=== PATIENT | female | born 1940 | race Hispanic/Latino ===

== ENCOUNTER 2017-11-29 13:19 | Emergency (ER) | payer MEDICARE ==
[~2017-11-29 13:19] MED LIST: ALPR0.5T8 PO; BUDE10.22 IH; CARV12.511 PO; CHOL200012 PO; CIPR500S5 PO; DULO20CA17 PO; FERR-82 PO; HYDR-4068 PO; MEMA5TAB PO; METF500T6 PO; NITR0.4T SL; OMEP40CA37 PO; OXYB5TAB10 PO; PRED20TA3 PO; SIMV5TAB6 PO
[2017-11-29 14:01] LABS: EOSINOPHILS % (AUTO) 1.9 % (0.0-8.0); LYMPHOCYTES % (AUTO) 20.1 % (21.0-51.0); MEAN CORPUSCULAR HGB CONC 34.3 g/dL (32.0-36.0); MEAN CORPUSCULAR VOLUME 99.1 fL (79-99); MONOCYTES % (AUTO) 7.1 % (3.0-13.0); NEUTROPHILS % (AUTO) 69.9 % (40.0-77.0); PLATELET COUNT (AUTO) 70 K/uL (130-400); RED BLOOD CELL COUNT(AUTO) 3.33 MIL/uL (4.00-5.50); RED CELL DISTRIBUTION WIDTH 12.9 % (11.0-15.5); WHITE BLOOD COUNT (AUTO) 4.8 K/uL (4.8-10.8)
[2017-11-29 14:16] LABS: CREATININE 0.9 mg/dL (0.5-1.5); POTASSIUM 3.9 mmol/L (3.5-5.1)
[2017-11-29 14:39] LABS: BILIRUBIN,TOTAL 0.4 mg/dL (0.2-1.0); CREATINE KINASE MB 0.6 ng/mL (0.5-3.6); TOTAL PROTEIN, SERUM 6.4 g/dL (6.0-8.3)
[2017-11-29] MEDS ORDERED: LIDOCAINE HCL 2% VISCOUS 15 ML UDCUP ONE (16:34)
[2017-11-29] MEDS ORDERED: MAG HYDROX/AL HYDROX/SIMETH ES 30 ML SUSP UDCUP ONE (16:34)
[2017-11-29] MEDS ORDERED: ONDANSETRON HCL MDV 20ML 2 MG/ML VIAL ONE (16:35)
[2017-11-29] MEDS ORDERED: MORPHINE SULFATE 4 MG/1ML SYG ONE (16:36)
== END 2017-11-29 17:17 | disposition home or self-care (01) ==
LOC: EDH 13:19
DX: R10.13 Epigastric pain (principal); K74.69 Other cirrhosis of liver; K29.70 Gastritis, unspecified, without bleeding; I25.10 Atherosclerotic heart disease of native coronary artery without angina pectoris; Z90.49 Acquired absence of other specified parts of digestive tract; Z98.890 Other specified postprocedural states; Z87.891 Personal history of nicotine dependence
CPT/HCPCS: 36415; 74176; 80053; 82150; 82550; 82553; 83690; 84484; 85025; 93005; 96374; 96375; 99285; J2270

== ENCOUNTER 2017-12-03 01:45 | Emergency (ER) | payer OTHER, MEDICARE ==
[2017-12-03] MEDS ORDERED: ACETAMINOPHEN 325 MG TAB ONE (02:04)
== END 2017-12-03 05:06 | disposition home or self-care (01) ==
LOC: EDH 01:45
DX: S00.11XA Contusion of right eyelid and periocular area, initial encounter (principal); S00.83XA Contusion of other part of head, initial encounter; S80.02XA Contusion of left knee, initial encounter; S40.011A Contusion of right shoulder, initial encounter; S70.02XA Contusion of left hip, initial encounter; I25.10 Atherosclerotic heart disease of native coronary artery without angina pectoris; Z90.49 Acquired absence of other specified parts of digestive tract; Z98.890 Other specified postprocedural states; W01.0XXA Fall on same level from slipping, tripping and stumbling without subsequent striking against object, initial encounter; Y93.89 Activity, other specified; Y92.89 Other specified places as the place of occurrence of the external cause; Y99.8 Other external cause status
CPT/HCPCS: 70450; 71045; 72125; 73030; 73502; 73562; 93005

== ENCOUNTER → 2019-07-26 | Outpatient (CLI) | payer MEDICARE ==
[~2019-07-26] MED LIST changes: +AUD IH; -DULO20CA17 PO; +DULO20CA18 PO; +FURO40TA7 PO; +LOSA25TA41 PO; +MELO-108 PO; +METF-444 PO; -METF500T6 PO; +OMEP40CA13 PO; -OMEP40CA37 PO; -OXYB5TAB10 PO; +OXYB5TAB15 PO; +SIMV5TAB58 PO; -SIMV5TAB6 PO; +TRAM50TA4 PO
== END | disposition home or self-care (01) ==
LOC: OIH 12:48
PROVIDERS: ATTEND Internal Medicine
DX: M17.11 Unilateral primary osteoarthritis, right knee (principal); Z96.652 Presence of left artificial knee joint; Z98.890 Other specified postprocedural states
CPT/HCPCS: 73560

== ENCOUNTER 2019-08-01 10:55 | Observation (INO) | payer MEDICARE ==
[~2019-08-01] VITALS: Ht 149.9 cm; Wt 75.7 kg
[~2019-08-01 10:55] MED LIST changes: -AUD IH; -FURO40TA7 PO; -LOSA25TA41 PO; -MELO-108 PO; -TRAM50TA4 PO
[2019-08-01] MEDS ORDERED: FUROSEMIDE 10 MG/ML 4ML VIAL ONE (11:42)
[2019-08-01 12:00] LABS: CREATININE 0.9 mg/dL (0.5-1.5); POTASSIUM 3.4 mmol/L (3.5-5.1)
[2019-08-01 12:03] LABS: BASOPHILS % (AUTO) 1.1 % (0.0-5.0); EOSINOPHILS % (AUTO) 2.6 % (0.0-8.0); HEMATOCRIT 38.8 % (36-48); LYMPHOCYTES % (AUTO) 20.4 % (21.0-51.0); MEAN CORPUSCULAR HEMOGLOBIN 33.1 pg (27.0-33.0); MEAN CORPUSCULAR HGB CONC 32.5 g/dL (32.0-36.0); MEAN CORPUSCULAR VOLUME 101.8 fL (79-99); MONOCYTES % (AUTO) 7.4 % (3.0-13.0); PLATELET COUNT (AUTO) 117 K/uL (130-400); RED BLOOD CELL COUNT(AUTO) 3.81 MIL/uL (4.00-5.50); RED CELL DISTRIBUTION WIDTH 13.3 % (11.0-15.5); WHITE BLOOD COUNT (AUTO) 9.9 K/uL (4.8-10.8)
[2019-08-01 12:04] LABS: ALBUMIN 2.9 g/dL (3.5-5.0); TOTAL PROTEIN, SERUM 6.9 g/dL (6.0-8.3)
[2019-08-01 12:54] LABS: B-TYPE NATRIURETIC PEPTIDE 393 pg/mL (0-100)
[2019-08-01] MEDS: INSULIN R PO SS1 SQ SCH ×2 (16:30→21:00)
--- NOTE | 2019-08-01 16:56 | NUR ---
ER ADMIT PATIENT RECEIVED FROM ER VIA STRETCHER IN STABLE CONDITION. FAMILY IS PRESENT IN ROOM. ALL HAVE BEEN ORIENTED TO ROOM AND USE OF CALL LIGHT. BED IS IN LOWEST POSITION AND LOCKED. WILL REVIEW MD ORDERS AND CONTINUE TO MONITOR.
[2019-08-01 17:28] VITALS: BP 124/61
[2019-08-01 19:05] VITALS: BP 108/54
[2019-08-01 19:26] LABS: TROPONIN I 0.05 ng/mL (0.00-0.06)
[2019-08-01] MEDS ORDERED: TRAM50TA4 PO (20:25)
[2019-08-01] MEDS ORDERED: FURO40TA7 PO (20:27)
[2019-08-01] MEDS ORDERED: LOSA25TA41 PO (20:29)
[2019-08-01] MEDS ORDERED: MELO-108 PO (20:32)
[2019-08-01] MEDS ORDERED: AUD IH (20:35)
[2019-08-01] MEDS ORDERED: IPRATROPIUM/ALBUTEROL SULFATE 3 ML SOLUTION IH PRN (20:45)
[2019-08-01] MEDS ORDERED: TRAMADOL HCL 50 MG TABLET PO PRN (21:00)
[2019-08-01] MEDS ORDERED: NITROGLYCERIN 0.4 MG SL TAB SL SCH (21:00)
[2019-08-01] MEDS ORDERED: LIDOCAINE HCL-MPF 1% 2ML VIAL IV PRN ×2 (22:00)
[2019-08-01] MEDS ORDERED: POTASSIUM CHLORIDE 20MEQ/100ML 100 ML IV PRN ×2 (22:00)
[2019-08-01] MEDS ORDERED: POTASSIUM CHLORIDE 10% ELIXIR 20 MEQ/15 ML UDCUP PO PRN (22:00)
[2019-08-01] MEDS: LOSARTAN 50 MG TABLET PO SCH (22:00)
[2019-08-01] MEDS: POTASSIUM CHLORIDE 20 MEQ ERTAB PO PRN (22:04)
[2019-08-01] MEDS: SIMVASTATIN 10 MG TABLET PO SCH (22:16)
[2019-08-01 23:05] VITALS: BP 136/76
[2019-08-01] MEDS: IPRATROPIUM/ALBUTEROL SULFATE 3 ML SOLUTION IH SCH (23:07)
[2019-08-01] MEDS: FUROSEMIDE 10 MG/ML 4ML VIAL IVP SCH (23:17)
[2019-08-02] MEDS: POTASSIUM CHLORIDE 20 MEQ ERTAB PO PRN (00:14)
[2019-08-02 02:25] LABS: TROPONIN I 0.06 ng/mL (0.00-0.06)
[2019-08-02 03:10] VITALS: BP 121/69
[2019-08-02 05:54] LABS: CREATININE 0.8 mg/dL (0.5-1.5); MAGNESIUM 1.5 mg/dL (1.80-2.40); POTASSIUM 3.8 mmol/L (3.5-5.1)
[2019-08-02] MEDS: IPRATROPIUM/ALBUTEROL SULFATE 3 ML SOLUTION IH SCH ×4 (06:36→23:43)
[2019-08-02] MEDS: INSULIN R PO SS1 SQ SCH ×4 (06:45→21:16)
[2019-08-02] MEDS ORDERED: AZITHROMYCIN 500MG+NS 250ML 250 ML IV SCH (07:00)
[2019-08-02 08:00] VITALS: BP 139/82
[2019-08-02] MEDS: DULOXETINE HCL 20 MG PO SCH (09:00)
--- NOTE | 2019-08-02 10:00 | NUR ---
DYSPHAGIA EVAL COMPLETED. -S/S OF ASPIRATION. RECOMMEND MECHANICAL SOFT/CHOPPED, THIN LIQUIDS; PILLS WHOLE WITH LIQUIDS. Addendum: 08/02/19 at 1240 by LUMA HEBERT, [facility] Amended: Links added.
[2019-08-02] MEDS: MEMANTINE HCL 5 MG TABLET PO SCH (11:07)
[2019-08-02] MEDS: PANTOPRAZOLE SODIUM 40 MG TABLET.DR PO SCH (11:07)
[2019-08-02] MEDS: FERROUS SULFATE 325 MG TABLET.DR PO SCH (11:07)
[2019-08-02] MEDS: MELOXICAM 7.5 MG TABLET PO SCH (11:07)
[2019-08-02] MEDS: FUROSEMIDE 10 MG/ML 4ML VIAL IVP SCH ×2 (11:08→23:22)
[2019-08-02 11:59] VITALS: BP 114/63
[2019-08-02] MEDS: MAGNESIUM 2GM PREMIX 50ML 50 ML IV PRN (13:39)
[2019-08-02 16:00] VITALS: BP 116/63
--- NOTE | 2019-08-02 16:34 | NUR ---
DCP CM met with pt and daughter discussed dc plans. Pt is semi-independent prior to admission, lives at home with daughter. Pt has a nebulizer machine, walker, cane, cpap, provider 4hrs/day. Denies any other equipments/services. Feels safe to go back home, daughter able to assist with transportation and needs as necessary. DC plan to home once stable. CM to cont to follow up. Addendum: 08/02/19 at 1635 by DAVID MARIE LVN CM Amended: Links added.
[2019-08-02 19:05] VITALS: BP 109/65
[2019-08-02] MEDS: SIMVASTATIN 10 MG TABLET PO SCH (21:13)
[2019-08-02] MEDS: LOSARTAN 50 MG TABLET PO SCH (21:14)
[2019-08-02 23:27] VITALS: BP 125/72
[2019-08-03 03:05] VITALS: BP 116/60
[2019-08-03 04:43] LABS: HEMATOCRIT 40.9 % (36-48); MEAN CORPUSCULAR HEMOGLOBIN 32.7 pg (27.0-33.0); MEAN CORPUSCULAR HGB CONC 31.8 g/dL (32.0-36.0); PLATELET COUNT (AUTO) 125 K/uL (130-400); RED BLOOD CELL COUNT(AUTO) 3.97 MIL/uL (4.00-5.50); RED CELL DISTRIBUTION WIDTH 13.3 % (11.0-15.5); WHITE BLOOD COUNT (AUTO) 9.2 K/uL (4.8-10.8)
[2019-08-03 05:04] LABS: ALBUMIN 2.8 g/dL (3.5-5.0); BILIRUBIN,TOTAL 0.9 mg/dL (0.2-1.0); CREATININE 0.9 mg/dL (0.5-1.5); MAGNESIUM 1.9 mg/dL (1.80-2.40); POTASSIUM 3.7 mmol/L (3.5-5.1); TOTAL PROTEIN, SERUM 6.7 g/dL (6.0-8.3)
[2019-08-03] MEDS: MAGNESIUM 2GM PREMIX 50ML 50 ML IV PRN (05:50)
[2019-08-03] MEDS: POTASSIUM CHLORIDE 20 MEQ ERTAB PO PRN (05:51)
[2019-08-03] MEDS ORDERED: SODIUM CHLORIDE 0.9% IV SCH (07:00)
[2019-08-03] MEDS ORDERED: POTASSIUM CHLORIDE IV SCH (07:00)
[2019-08-03] MEDS: IPRATROPIUM/ALBUTEROL SULFATE 3 ML SOLUTION IH SCH ×2 (07:09→12:22)
[2019-08-03] MEDS ORDERED: NS-20 MEQ KCL 1000ML 1,000 ML IV SCH (07:30)
[2019-08-03] MEDS: INSULIN R PO SS1 SQ SCH ×2 (07:30→12:21)
[2019-08-03] MEDS ORDERED: POTASSIUM CHLORIDE 20 MEQ ERTAB PO SCH ×2 (08:00→12:00)
[2019-08-03] MEDS ORDERED: AZITHROMYCIN 250 MG TABLET PO SCH (08:00)
[2019-08-03 08:58] VITALS: BP 96/58
[2019-08-03] MEDS ORDERED: PREDNISONE 20 MG TABLET PO SCH (09:00)
[2019-08-03] MEDS: DULOXETINE HCL 20 MG PO SCH (09:00)
[2019-08-03] MEDS ORDERED: MAGNESIUM OXIDE 400 MG TABLET PO SCH (09:00)
[2019-08-03] MEDS: FERROUS SULFATE 325 MG TABLET.DR PO SCH (09:37)
[2019-08-03] MEDS: PANTOPRAZOLE SODIUM 40 MG TABLET.DR PO SCH (09:37)
[2019-08-03] MEDS: MEMANTINE HCL 5 MG TABLET PO SCH (09:38)
[2019-08-03] MEDS: MELOXICAM 7.5 MG TABLET PO SCH (09:38)
[2019-08-03] MEDS: FUROSEMIDE 10 MG/ML 4ML VIAL IVP SCH (11:00)
[2019-08-03 12:56] VITALS: BP 114/67
--- NOTE | 2019-08-03 13:07 | NUR ---
pt and toby who was translating into kazakh stated understanding of all d/c instructions in regards to chf and pneumonia; script given for prednisone and zithromax and pt instruted to take over the counter magnesium oxide; iv access removed and telebox removed; pt ready for d/c home.
== END 2019-08-03 13:00 | disposition home or self-care (01) ==
LOC: EDH 10:55 → EDHIP 14:30 → 3AH 15:40
PROVIDERS: ADMIT Internal Medicine; ATTEND Internal Medicine
DX: J44.1 Chronic obstructive pulmonary disease with (acute) exacerbation (principal); I11.0 Hypertensive heart disease with heart failure; I50.23 Acute on chronic systolic (congestive) heart failure; E11.9 Type 2 diabetes mellitus without complications; E78.5 Hyperlipidemia, unspecified; K74.60 Unspecified cirrhosis of liver; I25.119 Atherosclerotic heart disease of native coronary artery with unspecified angina pectoris; K21.9 Gastro-esophageal reflux disease without esophagitis; F03.90 Unspecified dementia, unspecified severity, without behavioral disturbance, psychotic disturbance, mood disturbance, and anxiety; E87.6 Hypokalemia; Z87.891 Personal history of nicotine dependence; Z95.4 Presence of other heart-valve replacement; Z90.49 Acquired absence of other specified parts of digestive tract; Z79.899 Other long term (current) drug therapy
CPT/HCPCS: 36415; 71045; 80048; 80053; 82550; 82948; 83735; 83874; 83880; 84484; 85025; 85027; 92610; 93005; 93306; 94640; 94664; 96365; 96366; 96367; 96372; 96375; 96376; 97039; G0378; J0456; J1815; J1940; J3475; J3480

== ENCOUNTER → 2019-12-17 | Outpatient (CLI) | payer MEDICARE ==
[~2019-12-17] MED LIST changes: -ALPR0.5T8 PO; +AUD IH; -CARV12.511 PO; -CHOL200012 PO; -CIPR500S5 PO; +FURO40TA7 PO; -HYDR-4068 PO; +LOSA25TA41 PO; +MELO-108 PO; -METF-444 PO; -OXYB5TAB15 PO; -PRED20TA3 PO; +TRAM50TA4 PO
== END | disposition home or self-care (01) ==
LOC: OIH 11:20
PROVIDERS: ATTEND Internal Medicine
DX: S80.01XA Contusion of right knee, initial encounter (principal); J44.9 Chronic obstructive pulmonary disease, unspecified; X58.XXXA Exposure to other specified factors, initial encounter; Y93.89 Activity, other specified; Y92.89 Other specified places as the place of occurrence of the external cause; Y99.8 Other external cause status
CPT/HCPCS: 71046; 73560

== ENCOUNTER 2019-12-21 13:31 | Inpatient (IN) | payer MEDICARE ==
[~2019-12-21] VITALS: Ht 152.4 cm; Wt 163.4 kg
[2019-12-21 15:08] LABS: BASOPHILS % (AUTO) 0.3 % (0.0-5.0); EOSINOPHILS % (AUTO) 0.1 % (0.0-8.0); HEMATOCRIT 39.5 % (36-48); MEAN CORPUSCULAR HEMOGLOBIN 33.8 pg (27.0-33.0); MEAN CORPUSCULAR HGB CONC 35.2 g/dL (32.0-36.0); MEAN CORPUSCULAR VOLUME 96.1 fL (79-99); MONOCYTES % (AUTO) 3.4 % (3.0-13.0); NEUTROPHILS % (AUTO) 90.6 % (40.0-77.0); PLATELET COUNT (AUTO) 108 K/uL (130-400); RED BLOOD CELL COUNT(AUTO) 4.11 MIL/uL (4.00-5.50); RED CELL DISTRIBUTION WIDTH 14.3 % (11.0-15.5); WHITE BLOOD COUNT (AUTO) 14.6 K/uL (4.8-10.8)
[2019-12-21 15:17] LABS: INR 0.96 (0.85-1.15); PARTIAL THROMBOPLASTIN TIME 20.9 SEC (26.3-35.5); PROTHROMBIN TIME 10.4 SEC (9.6-11.6)
[2019-12-21 15:19] LABS: CREATININE 1.3 mg/dL (0.5-1.5); POTASSIUM 3.4 mmol/L (3.5-5.1)
[2019-12-21 15:48] LABS: APPEARANCE,URINE Cloudy (CLEAR); BILIRUBIN,URINE Negative (NEGATIVE); COLOR,URINE Yellow (YELLOW); GLUCOSE, URINE (UA) >=1000 mg/dL (NEGATIVE); KETONES,URINE Negative (NEGATIVE); LEUKOCYTE ESTERASE ,URINE Moderate (NEGATIVE); NITRATE,URINE Positive (NEGATIVE); OCCULT BLOOD,URINE Small (NEGATIVE); PH,URINE 5.5 (5.0-8.0); PROTEIN,URINE Negative (NEGATIVE)
[2019-12-21 16:08] LABS: BACTERIA,URINE Many /HPF (None Seen); RBC,URINE None Seen /HPF (0-1); SQUAMOUS EPITHELIAL CELL,UR 0-2 /HPF (0-2)
[2019-12-21] MEDS ORDERED: INSULIN HUMULIN R 100 UNIT/ML 3ML ONE (16:12)
[2019-12-21] MEDS ORDERED: CEFTRIAXONE SODIUM 1 GM ONE (16:32)
[2019-12-21] MEDS: 1/2 NORMAL SALINE 1,000 ML IV SCH (21:24)
[2019-12-21] MEDS: ENOXAPARIN SODIUM 30 MG/0.3 ML SQ SCH (21:30)
[2019-12-21] MEDS: INSULIN R PO SS1 SQ SCH (21:36)
[2019-12-21 22:00] VITALS: BP 128/63
[2019-12-22] MEDS ORDERED: [UNRECOGNIZED DRUG - OTHER] IH (03:26)
[2019-12-22] MEDS ORDERED: BUDE0.5A8 IH (03:26)
[2019-12-22] MEDS ORDERED: GUAI-1447 PO (03:26)
[2019-12-22] MEDS ORDERED: SPIR25TA PO (03:26)
[2019-12-22] MEDS ORDERED: INSREG SQ (03:26)
[2019-12-22] MEDS ORDERED: FAMO20TA8 PO (03:26)
[2019-12-22] MEDS ORDERED: VIT500LI PO (03:26)
[2019-12-22] MEDS ORDERED: INSLAN SQ (03:26)
[2019-12-22] MEDS ORDERED: METF500S7 PO (03:26)
[2019-12-22] MEDS ORDERED: BUME2TAB5 PO (03:26)
[2019-12-22] MEDS ORDERED: MULT-1203 PO (03:26)
[2019-12-22 04:00] VITALS: BP 116/68
[2019-12-22] MEDS ORDERED: METO25TA6 PO (04:15)
[2019-12-22] MEDS ORDERED: ACET325T51 PO (04:15)
[2019-12-22] MEDS ORDERED: MAGN400O17 PO (04:15)
[2019-12-22] MEDS ORDERED: DEXT1DRO8 OP (04:15)
[2019-12-22] MEDS ORDERED: NITR0.4T50 SL (04:15)
[2019-12-22] MEDS ORDERED: CHLO15MO3 MM (04:15)
[2019-12-22 04:52] LABS: MEAN CORPUSCULAR HEMOGLOBIN 34.5 pg (27.0-33.0); MEAN CORPUSCULAR HGB CONC 35.6 g/dL (32.0-36.0); RED BLOOD CELL COUNT(AUTO) 3.71 MIL/uL (4.00-5.50); RED CELL DISTRIBUTION WIDTH 14.4 % (11.0-15.5)
[2019-12-22] MEDS: CEFTRIAXONE SODIUM 1 GM IVP SCH ×2 (04:52→17:06)
[2019-12-22 05:13] LABS: ALBUMIN 2.4 g/dL (3.5-5.0); BILIRUBIN,TOTAL 1.1 mg/dL (0.2-1.0); CREATININE 0.9 mg/dL (0.5-1.5); TOTAL PROTEIN, SERUM 5.4 g/dL (6.0-8.3)
[2019-12-22 05:15] LABS: POTASSIUM 2.8 mmol/L (3.5-5.1)
--- NOTE | 2019-12-22 05:52 | NUR ---
Re: Potassium 2.8 Dr. Napoles page & called back made aware regarding K+2.8, with order to initiate Potassium Protocol.
[2019-12-22] MEDS ORDERED: LIDOCAINE HCL-MPF 1% 2ML VIAL ONE (05:59)
[2019-12-22] MEDS ORDERED: POTASSIUM CHLORIDE 20 MEQ ERTAB PO ONE (06:00)
[2019-12-22] MEDS ORDERED: POTASSIUM CHLORIDE 20MEQ/100ML 100 ML IV PRN (06:00)
[2019-12-22] MEDS ORDERED: LIDOCAINE HCL-MPF 1% 2ML VIAL IV PRN (06:00)
[2019-12-22] MEDS ORDERED: POTASSIUM CHLORIDE 20MEQ/100ML 100 ML IV ONE (06:00)
[2019-12-22] MEDS: INSULIN R PO SS1 SQ SCH (06:16)
[2019-12-22] MEDS: 1/2 NORMAL SALINE 1,000 ML IV SCH (07:51)
[2019-12-22] MEDS: ENOXAPARIN SODIUM 30 MG/0.3 ML SQ SCH (07:52)
[2019-12-22 07:53] VITALS: BP 116/57
[2019-12-22] MEDS: POTASSIUM CHLORIDE 10% ELIXIR 20 MEQ/15 ML UDCUP PO PRN (08:31)
[2019-12-22] MEDS ORDERED: NITROGLYCERIN 0.4 MG SL TAB SL PRN (10:45)
[2019-12-22] MEDS ORDERED: FAMOTIDINE 20MG TAB 20 MG TAB PO PRN (10:45)
[2019-12-22] MEDS ORDERED: ACETAMINOPHEN 325 MG TAB PO PRN ×2 (10:45)
[2019-12-22] MEDS ORDERED: MAGNESIUM HYDROXIDE 30 ML/UDCUP PO PRN (10:45)
[2019-12-22] MEDS ORDERED: GUAIFENESIN SUGAR-FREE 100 MG/5 ML UDCUP PO SCH (10:45)
[2019-12-22] MEDS ORDERED: ACETYLCYSTEINE 20% 200MG/ML 4ML VIAL PO SCH (11:00)
[2019-12-22] MEDS ORDERED: ARTIFICAL TEARS SOL 15 ML OP PRN (11:00)
[2019-12-22 11:16] VITALS: BP 110/61
[2019-12-22] MEDS: SODIUM CHLORIDE 0.9% 1000ML 1,000 ML IV SCH (12:38)
[2019-12-22] MEDS: POTASSIUM CHLORIDE 20 MEQ ERTAB PO PRN ×2 (12:39→15:23)
[2019-12-22] MEDS: ACETAMINOPHEN-CODEINE 300/30MG TAB PO PRN (12:40)
--- NOTE | 2019-12-22 15:45 | NUR ---
INITIAL: Met with pt this afternoon to discuss dcp. Pt mentions that she lives w her granddtr Ailyn. Prior to admission she was independent w ambulation and ADLs. She does not own any DME or receive services. Pt states that she was recently discharged from [facility] but prefers to return home at [place]. CM to continue to follow and wait for Md recommendations. Addendum: 12/22/19 at 1555 by CHRIS KING CM Amended: Links added. Addendum: 12/22/19 at 1556 by CHRIS KING Correction: pt was discharged from [facility].
[2019-12-22] MEDS: INSULIN HUMULIN R 100 UNIT/ML 3ML SQ SCH ×2 (16:21→21:00)
[2019-12-22 16:30] VITALS: BP 112/64
[2019-12-22] MEDS: METFORMIN HCL 500 MG TABLET PO SCH (17:06)
[2019-12-22] MEDS: ALBUTEROL SULFATE 0.083% 2.5 MG/3 ML INH IH PRN (19:11)
[2019-12-22] MEDS: BUDESONIDE 0.5 MG/2 ML INH IH SCH (19:20)
[2019-12-22 20:00] VITALS: BP 107/50
[2019-12-22] MEDS ORDERED: INSULIN HUMULIN R 100 UNIT/ML 3ML SQ SCH (21:00)
[2019-12-22] MEDS: SIMVASTATIN 10 MG TABLET PO SCH (21:20)
[2019-12-22] MEDS: ASCORBIC ACID 500 MG TAB PO SCH (21:20)
[2019-12-22] MEDS: METOPROLOL TARTRATE 25 MG TAB PO SCH (21:21)
[2019-12-22] MEDS: METHYLPREDNISOLONE SOD SUCC 125MG/2ML VIAL IVP SCH (21:21)
[2019-12-22] MEDS: LOSARTAN 50 MG TABLET PO SCH (21:21)
[2019-12-22 23:44] VITALS: BP 140/67
[2019-12-23] MEDS: SODIUM CHLORIDE 0.9% 1000ML 1,000 ML IV SCH ×2 (01:02→08:19)
[2019-12-23 04:00] VITALS: BP 125/61
[2019-12-23] MEDS: CEFTRIAXONE SODIUM 1 GM IVP SCH ×2 (04:25→16:58)
[2019-12-23 05:49] LABS: BASOPHILS % (AUTO) 0.2 % (0.0-5.0); HEMATOCRIT 33.8 % (36-48); LYMPHOCYTES % (AUTO) 4.4 % (21.0-51.0); MEAN CORPUSCULAR HEMOGLOBIN 33.5 pg (27.0-33.0); MEAN CORPUSCULAR HGB CONC 33.4 g/dL (32.0-36.0); MEAN CORPUSCULAR VOLUME 100.3 fL (79-99); MONOCYTES % (AUTO) 1.2 % (3.0-13.0); NEUTROPHILS % (AUTO) 92.5 % (40.0-77.0); PLATELET COUNT (AUTO) 82 K/uL (130-400); RED BLOOD CELL COUNT(AUTO) 3.37 MIL/uL (4.00-5.50); RED CELL DISTRIBUTION WIDTH 14.8 % (11.0-15.5); WHITE BLOOD COUNT (AUTO) 8.3 K/uL (4.8-10.8)
[2019-12-23 06:06] LABS: ALBUMIN 2.1 g/dL (3.5-5.0); BILIRUBIN,TOTAL 0.6 mg/dL (0.2-1.0); POTASSIUM 5.3 mmol/L (3.5-5.1); TOTAL PROTEIN, SERUM 4.9 g/dL (6.0-8.3)
[2019-12-23] MEDS: BUDESONIDE 0.5 MG/2 ML INH IH SCH ×2 (06:26→18:10)
[2019-12-23] MEDS: ALBUTEROL SULFATE 0.083% 2.5 MG/3 ML INH IH PRN ×3 (06:26→22:30)
[2019-12-23] MEDS: ACETYLCYSTEINE 20% 200MG/ML 4ML VIAL IH SCH ×3 (07:15→22:29)
[2019-12-23] MEDS: ENOXAPARIN SODIUM 30 MG/0.3 ML SQ SCH (07:37)
[2019-12-23 07:43] VITALS: BP 114/55
[2019-12-23] MEDS: METOPROLOL TARTRATE 25 MG TAB PO SCH ×2 (08:01→20:04)
[2019-12-23] MEDS: FERROUS SULFATE 325 MG TABLET.DR PO SCH (08:12)
[2019-12-23] MEDS: SPIRONOLACTONE 25 MG TAB PO SCH (08:12)
[2019-12-23] MEDS: MULTIVITAMIN TABLET PO SCH (08:12)
[2019-12-23] MEDS: METFORMIN HCL 500 MG TABLET PO SCH ×2 (08:12→16:58)
[2019-12-23] MEDS: BUMETANIDE 1 MG TAB PO SCH (08:12)
[2019-12-23] MEDS: METHYLPREDNISOLONE SOD SUCC 125MG/2ML VIAL IVP SCH ×2 (08:13→20:04)
[2019-12-23] MEDS: **HM** DULOXETINE 20MG PO SCH (08:13)
[2019-12-23] MEDS: ASCORBIC ACID 500 MG TAB PO SCH ×2 (08:13→20:04)
[2019-12-23] MEDS: MEMANTINE HCL 5 MG TABLET PO SCH (08:13)
[2019-12-23] MEDS: INSULIN GLARGINE 100 UNITS/ML 10 ML VIAL SQ SCH (08:19)
[2019-12-23] MEDS: INSULIN HUMULIN R 100 UNIT/ML 3ML SQ SCH ×2 (08:19→20:06)
[2019-12-23 11:20] VITALS: BP 98/46
[2019-12-23 16:27] VITALS: BP 114/58
--- NOTE | 2019-12-23 20:00 | NUR ---
PATIENT AWAKE AND ALERT. VOICES NEEDS. MEDICATED PER MARS FOR COMPLAINTS OF RIB AND GENERALIZED BODY ACHES. RESP EVEN AND UNLABORED. NO SOB NOTED. ON ROOM SIR. MEDICATED FOR COUGH PER MARS. TOTAL CARE RENDERED Q2H AND PRN. BED BATH GIVEN BY NURSE. DRESSING CHANGE TO MEDICAL COCCYX ULCER DONE. PATIENT TOLERATED WELL. REPOSITIONED FOR COMFORT. NO SIGNS OF DISTRESS NOTED. CALL LIGHT WITHIN REACH. WILL CONTINUE TO BE OBSERVED. Addendum: 12/23/19 at 7348 by JULIANO MARTINEZ RN RN Amended: Links added.
[2019-12-23] MEDS: SIMVASTATIN 10 MG TABLET PO SCH (20:03)
[2019-12-23] MEDS: LOSARTAN 50 MG TABLET PO SCH (20:03)
[2019-12-23] MEDS: ACETAMINOPHEN-CODEINE 300/30MG TAB PO PRN (20:04)
[2019-12-23 20:05] VITALS: BP 107/57
[2019-12-23 23:45] VITALS: BP 102/48
[2019-12-24 03:38] VITALS: BP 108/64
[2019-12-24] MEDS: CEFTRIAXONE SODIUM 1 GM IVP SCH ×2 (03:43→17:26)
[2019-12-24] MEDS: SODIUM CHLORIDE 0.9% 1000ML 1,000 ML IV SCH ×2 (03:43→17:26)
[2019-12-24] MEDS: ACETAMINOPHEN-CODEINE 300/30MG TAB PO PRN ×2 (03:43→21:31)
[2019-12-24 05:23] LABS: BASOPHILS % (AUTO) 0.1 % (0.0-5.0); HEMATOCRIT 32.6 % (36-48); LYMPHOCYTES % (AUTO) 5.4 % (21.0-51.0); MEAN CORPUSCULAR HGB CONC 33.1 g/dL (32.0-36.0); MEAN CORPUSCULAR VOLUME 102.5 fL (79-99); MONOCYTES % (AUTO) 3.3 % (3.0-13.0); NEUTROPHILS % (AUTO) 90.1 % (40.0-77.0); PLATELET COUNT (AUTO) 92 K/uL (130-400); RED BLOOD CELL COUNT(AUTO) 3.18 MIL/uL (4.00-5.50); RED CELL DISTRIBUTION WIDTH 14.6 % (11.0-15.5); WHITE BLOOD COUNT (AUTO) 16.2 K/uL (4.8-10.8)
[2019-12-24 05:34] LABS: BILIRUBIN,TOTAL 0.3 mg/dL (0.2-1.0); CREATININE 1.1 mg/dL (0.5-1.5); POTASSIUM 4.8 mmol/L (3.5-5.1); TOTAL PROTEIN, SERUM 4.6 g/dL (6.0-8.3)
[2019-12-24] MEDS: INSULIN HUMULIN R 100 UNIT/ML 3ML SQ SCH ×3 (05:58→22:18)
[2019-12-24] MEDS ORDERED: SODIUM CHLORIDE 3% FOR INHALATION 4 ML/AMP VIAL.NEB IH ONE (06:19)
[2019-12-24] MEDS: ALBUTEROL SULFATE 0.083% 2.5 MG/3 ML INH IH PRN ×3 (06:22→18:56)
[2019-12-24] MEDS: BUDESONIDE 0.5 MG/2 ML INH IH SCH ×2 (06:22→18:56)
[2019-12-24] MEDS: ACETYLCYSTEINE 20% 200MG/ML 4ML VIAL IH SCH ×3 (06:23→18:56)
[2019-12-24] MEDS: INSULIN GLARGINE 100 UNITS/ML 10 ML VIAL SQ SCH ×2 (08:00→10:46)
[2019-12-24 08:32] VITALS: BP 106/46
[2019-12-24] MEDS: ENOXAPARIN SODIUM 30 MG/0.3 ML SQ SCH (09:00)
[2019-12-24] MEDS: **HM** DULOXETINE 20MG PO SCH (09:00)
--- NOTE | 2019-12-24 09:20 | NUR ---
DYSPHAGIA EVAL COMPLETED. NO OVERT S/S OF ASPIRATION. RECOMMEND PUREED, THIN, AND PILLS WHOLE WITH LIQUIDS. Pt DOWNGRADED TO PUREED TO COMPENSATE FOR POOR DENTITION AND INCREASED MASTICATION TIME. DISH TECHNICIAN COORDINATED CARE AND RECOMMENDATIONS WITH NURSE BLAISE. Addendum: 12/24/[address]ORI SALAMANCA Amended: Links added.
[2019-12-24] MEDS: METFORMIN HCL 500 MG TABLET PO SCH ×2 (10:18→17:26)
[2019-12-24] MEDS: MULTIVITAMIN TABLET PO SCH (10:19)
[2019-12-24] MEDS: ASCORBIC ACID 500 MG TAB PO SCH ×2 (10:19→21:12)
[2019-12-24] MEDS: BUMETANIDE 1 MG TAB PO SCH (10:19)
[2019-12-24] MEDS: METOPROLOL TARTRATE 25 MG TAB PO SCH ×2 (10:20→21:13)
[2019-12-24] MEDS: SPIRONOLACTONE 25 MG TAB PO SCH (10:20)
[2019-12-24] MEDS: MEMANTINE HCL 5 MG TABLET PO SCH (10:20)
[2019-12-24] MEDS: FERROUS SULFATE 325 MG TABLET.DR PO SCH (10:21)
[2019-12-24] MEDS: METHYLPREDNISOLONE SOD SUCC 125MG/2ML VIAL IVP SCH ×2 (10:28→21:13)
[2019-12-24 11:45] VITALS: BP 110/52
--- NOTE | 2019-12-24 15:56 | NUR ---
[facility] CONSULT PATIENT ASSESSED REQUESTED: [facility] RECOMMENDATIONS SUBMITTED AND REPORT GIVEN TO PATIENT'S NURSE BLAISE. Addendum: 12/24/19 at 1557 by FRANSISCO ARAIZA LVN LVN W Amended: Links added.
[2019-12-24 16:36] VITALS: BP 100/47
[2019-12-24 20:04] VITALS: BP 109/57
[2019-12-24] MEDS ORDERED: INSULIN HUMULIN R 100 UNIT/ML 3ML SQ SCH (21:00)
[2019-12-24] MEDS: LOSARTAN 50 MG TABLET PO SCH (21:13)
[2019-12-24] MEDS: SIMVASTATIN 10 MG TABLET PO SCH (21:13)
--- NOTE | 2019-12-24 21:15 | NUR ---
MEDS SHIFT ASSESSMENT DONE, PLEASE REFER TO CHART. DUE MEDS ADMINISTERED, TOLERATED WELL. KEPT RESTED AND COMFORTABLE IN BED. CALL LIGHT WITHIN REACH. Addendum: 12/25/19 at 0146 by DILLON REYNOSO RN RN Amended: Links added.
--- NOTE | 2019-12-24 22:26 | NUR ---
MD DR HICKS CALLED FOR ANOTHER PT AND WAS ASKED ABOUT PT'S ATTENDING MD. STATED HE WILL BE THE ATTENDING. CHANGE MD IN THE COMPUTER.
[2019-12-25] VITALS (8 sets, daily range): BP systolic 98–129; BP diastolic 44–69
--- NOTE | 2019-12-25 02:00 | NUR ---
ROUNDS PT RESTING WELL, FAIRLY ASLEEP. NO DISTRESS NOTED. KEPT UNDISTURBED FOR NOW. WILL MONITOR PT. CALL LIGHT WITHIN REACH.
[2019-12-25] MEDS: CEFTRIAXONE SODIUM 1 GM IVP SCH (04:27)
[2019-12-25] MEDS: SODIUM CHLORIDE 0.9% 1000ML 1,000 ML IV SCH ×2 (05:04→20:34)
--- NOTE | 2019-12-25 05:21 | NUR ---
ROUNDS PT RESTING WELL, FAIRLY ASLEEP. NO DISTRESS NOTED. KEPT UNDISTURBED FOR NOW. NEW IVF BAG HUNG. FOR MORE CARE.
[2019-12-25] MEDS: INSULIN HUMULIN R 100 UNIT/ML 3ML SQ SCH ×4 (05:56→20:45)
[2019-12-25] MEDS: ACETYLCYSTEINE 20% 200MG/ML 4ML VIAL IH SCH ×3 (06:31→21:21)
[2019-12-25] MEDS: BUDESONIDE 0.5 MG/2 ML INH IH SCH ×2 (06:32→19:10)
[2019-12-25] MEDS: ALBUTEROL SULFATE 0.083% 2.5 MG/3 ML INH IH PRN ×3 (06:32→21:21)
--- NOTE | 2019-12-25 07:00 | NUR ---
MD DR HICKS IN TO SEE PT. NEW ORDERS GIVEN, PLEASE REFER TO CPOE. ENDORSED TO AM NURSE, BLAISE. NURSES ROUNDS DONE.
[2019-12-25] MEDS: MULTIVITAMIN TABLET PO SCH (08:14)
[2019-12-25] MEDS: FERROUS SULFATE 325 MG TABLET.DR PO SCH (08:14)
[2019-12-25] MEDS: MEMANTINE HCL 5 MG TABLET PO SCH (08:15)
[2019-12-25] MEDS: BUMETANIDE 1 MG TAB PO SCH (08:15)
[2019-12-25] MEDS: ASCORBIC ACID 500 MG TAB PO SCH ×2 (08:15→20:35)
[2019-12-25] MEDS: METFORMIN HCL 500 MG TABLET PO SCH ×2 (08:16→17:37)
[2019-12-25] MEDS: METHYLPREDNISOLONE SOD SUCC 125MG/2ML VIAL IVP SCH ×2 (08:16→20:35)
[2019-12-25] MEDS: **HM** DULOXETINE 20MG PO SCH (08:18)
[2019-12-25] MEDS: METOPROLOL TARTRATE 25 MG TAB PO SCH ×2 (08:22→20:35)
[2019-12-25] MEDS: SPIRONOLACTONE 25 MG TAB PO SCH (08:38)
[2019-12-25] MEDS: INSULIN GLARGINE 100 UNITS/ML 10 ML VIAL SQ SCH (08:47)
[2019-12-25] MEDS: ENOXAPARIN SODIUM 30 MG/0.3 ML SQ SCH (08:47)
--- NOTE | 2019-12-25 09:00 | NUR ---
FOLLOW UP COMPLETED. RECOMMEND MECHANICAL SOFT/GROUND TOLERATED, THIN LIQUIDS, PILLS WHOLE WITH LIQUIDS. PER NURSE WELSH, Pt EXPRESSED THE DESIRE TO CHEW SOFT SOLIDS DURING MEALTIMES. Pt WAS DOWNGRADED TO PUREED TO COMPENSATE FOR POOR DENTITION AND DUE TO INCREASED MASTICATION TIME. Pt MAY ADVANCE TO MECHANICAL SOFT/GROUND TOLERATED. DIETETICS DIRECTOR COORDINATED CARE AND RECOMMENDATIONS WITH NURSE WELSH. Addendum: 12/25/[address] LORI SALAMANCA Amended: Links added.
[2019-12-25] MEDS ORDERED: PHARMACY COMMUNICATION MISC SCH ×2 (12:30→16:00)
[2019-12-25] MEDS: HONEY 1 APPL/ML TUBE TP SCH (12:45)
[2019-12-25] MEDS: ACETAMINOPHEN-CODEINE 300/30MG TAB PO PRN (14:20)
--- NOTE | 2019-12-25 16:18 | NUR ---
KATHY NOTIFICATION - TRIGGER Pt admitted with Sepsis. Pt tolerating 75gm CC, Pureed diet order with no report of GI distress, PO intake at 100%. Pt with elevated BG (374). Noted, Coccyx ulcer. LBM 12/22/19. Recommend 60gm CC diet order Recommend 60mL Promod QD. RD to continue to monitor. Please notify as additional nutrition concerns arise. Thank you. Addendum: 12/25/19 at [address] Amended: Links added.
--- NOTE | 2019-12-25 19:18 | NUR ---
Spoke with pharmacist Jeet regarding order for unasyn per pharmacy protocol. No pharmacy protocol exists, he stated due to kidney function, his recommendations were for unasyn 1.5 gm IV q 6 hours. Orders entered.
[2019-12-25] MEDS: UNASYN 1.5GM+NS 100ML 100 ML IV SCH (20:34)
[2019-12-25] MEDS: SIMVASTATIN 10 MG TABLET PO SCH (20:35)
[2019-12-25] MEDS: LOSARTAN 50 MG TABLET PO SCH (20:36)
--- NOTE | 2019-12-25 21:53 | NUR ---
accucheck at 20:00 was 101. no insulin needed.
[2019-12-26] MEDS: UNASYN 1.5GM+NS 100ML 100 ML IV SCH ×4 (01:00→18:13)
[2019-12-26 03:10] VITALS: BP 111/54
[2019-12-26 04:36] LABS: HEMATOCRIT 34.1 % (36-48); MEAN CORPUSCULAR HEMOGLOBIN 33.4 pg (27.0-33.0); MEAN CORPUSCULAR HGB CONC 33.4 g/dL (32.0-36.0); RED BLOOD CELL COUNT(AUTO) 3.41 MIL/uL (4.00-5.50); RED CELL DISTRIBUTION WIDTH 14.5 % (11.0-15.5); WHITE BLOOD COUNT (AUTO) 11.4 K/uL (4.8-10.8)
[2019-12-26 04:52] LABS: BILIRUBIN,TOTAL 0.4 mg/dL (0.2-1.0); CREATININE 0.8 mg/dL (0.5-1.5); POTASSIUM 3.4 mmol/L (3.5-5.1); TOTAL PROTEIN, SERUM 4.7 g/dL (6.0-8.3)
[2019-12-26] MEDS: INSULIN HUMULIN R 100 UNIT/ML 3ML SQ SCH ×4 (05:56→20:12)
[2019-12-26] MEDS: METFORMIN HCL 500 MG TABLET PO SCH ×2 (06:09→18:13)
[2019-12-26] MEDS: POTASSIUM CHLORIDE 20 MEQ ERTAB PO PRN ×2 (06:10→12:15)
--- NOTE | 2019-12-26 06:22 | NUR ---
accucheck this morning is 177. humulin r given 6 units
[2019-12-26] MEDS: ALBUTEROL SULFATE 0.083% 2.5 MG/3 ML INH IH PRN ×2 (06:24→18:36)
[2019-12-26] MEDS: BUDESONIDE 0.5 MG/2 ML INH IH SCH ×2 (06:33→18:36)
[2019-12-26] MEDS: ACETAMINOPHEN-CODEINE 300/30MG TAB PO PRN ×2 (07:00→12:37)
[2019-12-26 08:11] VITALS: BP 99/43
[2019-12-26] MEDS: **HM** DULOXETINE 20MG PO SCH (09:00)
[2019-12-26] MEDS: HONEY 1 APPL/ML TUBE TP SCH (09:00)
[2019-12-26] MEDS: ENOXAPARIN SODIUM 30 MG/0.3 ML SQ SCH (09:00)
--- NOTE | 2019-12-26 09:30 | NUR ---
FOLLOW UP COMPLETED REPULPING SUPERVISOR COORDINATED WITH NURSE CASTILLO. PER NURSE, Pt IS NOT INTERESTED IN PUREED TEXTURES. Pt MAY ADVANCE TO MECHANICAL SOFT/GROUND TOLERATED IN ORDER TO INCREASE Pt'S P.O. INTAKE. REPULPING SUPERVISOR WILL CONTINUE TO FOLLOW Pt. Addendum: 12/26/[address] LORI SALAMANCA Amended: Links added.
[2019-12-26 11:43] VITALS: BP 105/40
[2019-12-26] MEDS: SODIUM CHLORIDE 0.9% 1000ML 1,000 ML IV SCH (12:03)
[2019-12-26] MEDS: METHYLPREDNISOLONE SOD SUCC 125MG/2ML VIAL IVP SCH ×2 (12:03→19:56)
[2019-12-26] MEDS: SPIRONOLACTONE 25 MG TAB PO SCH (12:05)
[2019-12-26] MEDS: ASCORBIC ACID 500 MG TAB PO SCH ×2 (12:05→19:55)
[2019-12-26] MEDS: MULTIVITAMIN TABLET PO SCH (12:05)
[2019-12-26] MEDS: INSULIN GLARGINE 100 UNITS/ML 10 ML VIAL SQ SCH (12:05)
[2019-12-26] MEDS: FERROUS SULFATE 325 MG TABLET.DR PO SCH (12:06)
[2019-12-26] MEDS: MEMANTINE HCL 5 MG TABLET PO SCH (12:06)
[2019-12-26] MEDS: METOPROLOL TARTRATE 25 MG TAB PO SCH ×2 (12:06→19:56)
[2019-12-26] MEDS: BUMETANIDE 1 MG TAB PO SCH (12:07)
[2019-12-26 17:28] VITALS: BP 135/73
[2019-12-26] MEDS: LOSARTAN 50 MG TABLET PO SCH (19:55)
[2019-12-26] MEDS: SIMVASTATIN 10 MG TABLET PO SCH (19:56)
--- NOTE | 2019-12-26 20:00 | NUR ---
accucheck 301 and 16 units of insulin regular given.
[2019-12-26 20:10] VITALS: BP 108/45
[2019-12-26 23:42] VITALS: BP 101/48
[2019-12-27] MEDS: SODIUM CHLORIDE 0.9% 1000ML 1,000 ML IV SCH ×2 (01:13→11:00)
[2019-12-27] MEDS: UNASYN 1.5GM+NS 100ML 100 ML IV SCH ×3 (01:13→14:00)
[2019-12-27 03:39] VITALS: BP 110/50
--- NOTE | 2019-12-27 04:23 | NUR ---
coccyx wound cleaned (4x 4x 0.5) and right arm skin tear cleaned with saline (applied opsite 1 x 0.5 x 0) , left heel allevyn foam placed. pictures taken and placed on chart.
[2019-12-27] MEDS: POTASSIUM CHLORIDE 10% ELIXIR 20 MEQ/15 ML UDCUP PO PRN (05:04)
[2019-12-27] MEDS: INSULIN HUMULIN R 100 UNIT/ML 3ML SQ SCH ×3 (05:36→17:42)
[2019-12-27] MEDS: METFORMIN HCL 500 MG TABLET PO SCH ×2 (05:58→17:42)
[2019-12-27] MEDS: INSULIN GLARGINE 100 UNITS/ML 10 ML VIAL SQ SCH (06:07)
[2019-12-27] MEDS: ALBUTEROL SULFATE 0.083% 2.5 MG/3 ML INH IH PRN ×2 (06:25→18:37)
[2019-12-27] MEDS: BUDESONIDE 0.5 MG/2 ML INH IH SCH ×2 (06:34→18:22)
[2019-12-27 07:22] VITALS: BP 111/50
--- NOTE | 2019-12-27 08:40 | NUR ---
FOLLOW UP COMPLETED ACCOUNT SERVICE ASSOCIATE COORDINATED WITH NURSE CHASITY. Pt ON MECHANICAL SOFT/GROUND DIET AND TOLERATING IT WELL. Pt ATE ALL HER BREAKFAST THIS MORNING. Addendum: 12/27/[address] LORI SALAMANCA Amended: Links added.
[2019-12-27] MEDS: **HM** DULOXETINE 20MG PO SCH (09:00)
--- NOTE | 2019-12-27 10:00 | NUR ---
CM Note: [facility] pending approval CM spoke to pt's granddaughter discussed MD recommendations for rehab, granddaughter agreeable, telephone consent CJ obtained for [facility]. Faxed order, clinicals, PT, PASRR, confirmation received. Spoke to Rosie made aware pending Dr Langford to sign covid post assessment, faxed to MD office, confirmation received, made aware, will send once MD sign and resend. Per Audra will drop by this afternoon to swab pt prior to transfer. Pt pending approval. EMS arranged and faxed for today, primary nurse to [facility] once pt ready to DC. Primary nurse aware. CM to cont to follow up.
[2019-12-27] MEDS: FERROUS SULFATE 325 MG TABLET.DR PO SCH (10:22)
[2019-12-27] MEDS: METOPROLOL TARTRATE 25 MG TAB PO SCH (10:22)
[2019-12-27] MEDS: METHYLPREDNISOLONE SOD SUCC 125MG/2ML VIAL IVP SCH (10:22)
[2019-12-27] MEDS: MULTIVITAMIN TABLET PO SCH (10:22)
[2019-12-27] MEDS: BUMETANIDE 1 MG TAB PO SCH (10:22)
[2019-12-27] MEDS: ASCORBIC ACID 500 MG TAB PO SCH (10:22)
[2019-12-27] MEDS: MEMANTINE HCL 5 MG TABLET PO SCH (10:22)
[2019-12-27] MEDS: ENOXAPARIN SODIUM 30 MG/0.3 ML SQ SCH (10:23)
[2019-12-27] MEDS: HONEY 1 APPL/ML TUBE TP SCH (10:24)
[2019-12-27] MEDS: SPIRONOLACTONE 25 MG TAB PO SCH (10:38)
[2019-12-27 10:51] VITALS: BP 108/57
--- NOTE | 2019-12-27 14:42 | NUR ---
CM Note: [facility] approval CM spoke to Audra nielson/Cat Morales, pt has approval. Just pending Dr Langford to fax signed covid assessment. EMS arranged and faxed for today, primary nurse to call [facility] once pt ready to DC. Primary nurse aware. CM to cont to follow up.
[2019-12-27 15:58] VITALS: BP 114/61
--- NOTE | 2019-12-27 17:45 | NUR ---
NOTE DISCHARGE INSTRUCTIONS GIVEN TO PATIENT. BASICALLY SHE WILL GO TO [facility] AND CONTINUE WITH PO ABX AND DO P.T. PRIOR TO DC HOME. SHE DID WELL WITH P.T. SHE GOT OUT OF BED WITH MINNIMAL ASSISTANCE. SHE DOES GET SOB WITH EXERTION THOUGH. WAS SWABED FOR COVID EARLIER PER [facility] PROTOCOL PRIOR TO TRANSFER. RESULTS PENDING BUT SHE WILL TRANSFER THOUGH.
--- NOTE | 2019-12-27 20:00 | NUR ---
NOTE PATIENT TRANSFERRED TO [facility] VIA EMS. STABLE UPON LEAVING. GRAND DAUGHTER INFORMED ABOUT THE TRANSFER. HYUN OWENS.
== END 2019-12-27 19:54 | DRG 872 ==
LOC: EDH 13:31 → EDHIP 16:52 → 3AH 20:12
PROVIDERS: ADMIT Internal Medicine; ATTEND Internal Medicine
DX: A41.9 Sepsis, unspecified organism (principal); N39.0 Urinary tract infection, site not specified; J44.1 Chronic obstructive pulmonary disease with (acute) exacerbation; E87.1 Hypo-osmolality and hyponatremia; S22.39XA Fracture of one rib, unspecified side, initial encounter for closed fracture; Z68.45 Body mass index [BMI] 70 or greater, adult; Z16.12 Extended spectrum beta lactamase (ESBL) resistance; Z16.19 Resistance to other specified beta lactam antibiotics; R73.9 Hyperglycemia, unspecified; I50.9 Heart failure, unspecified; I11.0 Hypertensive heart disease with heart failure; I25.10 Atherosclerotic heart disease of native coronary artery without angina pectoris; E66.01 Morbid (severe) obesity due to excess calories; Z79.4 Long term (current) use of insulin; M79.18 Myalgia, other site; W18.39XA Other fall on same level, initial encounter; Y93.89 Activity, other specified; Y92.89 Other specified places as the place of occurrence of the external cause; Y99.8 Other external cause status; R26.89 Other abnormalities of gait and mobility
CPT/HCPCS: 36415; 70450; 71045; 71250; 72125; 74176; 80048; 80053; 81001; 82947; 82948; 83605; 84132; 85025; 85027; 85610; 85730; 87040; 87071; 87077; 87088; 87186; 87205; 92610; 93005; 94640; 94664; 97039; G0378; J0295; J0696; J1650; J1815; J2930; J3480; J3490; J7030; J7608

== ENCOUNTER 2020-07-21 18:27 | Emergency (ER) | payer MEDICARE ==
[~2020-07-21 18:27] MED LIST changes: +ACET325T51 PO; +BUDE0.5A8 IH; +BUME2TAB5 PO; +CHLO15MO3 MM; +DEXT1DRO8 OP; +FAMO20TA8 PO; -FURO40TA7 PO; +GUAI-1447 PO; +INSLAN SQ; +INSREG SQ; +MAGN400O17 PO; +METF500S7 PO; +METO25TA6 PO; +MULT-1203 PO; -NITR0.4T SL; +NITR0.4T50 SL; -OMEP40CA13 PO; +SPIR25TA PO; -TRAM50TA4 PO; +VIT500LI PO; +[UNRECOGNIZED DRUG - OTHER] IH
[2020-07-21 20:11] LABS: BASOPHILS % (AUTO) 0.9 % (0.0-5.0); HEMATOCRIT 39.4 % (36-48); LYMPHOCYTES % (AUTO) 32.4 % (21.0-51.0); MEAN CORPUSCULAR HGB CONC 33.2 g/dL (32.0-36.0); MEAN CORPUSCULAR VOLUME 96.3 fL (79-99); MONOCYTES % (AUTO) 8.1 % (3.0-13.0); NEUTROPHILS % (AUTO) 54.4 % (40.0-77.0); PLATELET COUNT (AUTO) 94 K/uL (130-400); RED BLOOD CELL COUNT(AUTO) 4.09 MIL/uL (4.00-5.50); WHITE BLOOD COUNT (AUTO) 5.8 K/uL (4.8-10.8)
[2020-07-21 20:19] LABS: CREATININE 1.8 mg/dL (0.5-1.5); POTASSIUM 5.1 mmol/L (3.5-5.1)
[2020-07-21 20:20] LABS: INR 0.94 (0.85-1.15); PARTIAL THROMBOPLASTIN TIME 23.1 SEC (26.3-35.5); PROTHROMBIN TIME 10.2 SEC (9.6-11.6)
[2020-07-21 20:23] LABS: ALBUMIN 3.4 g/dL (3.5-5.0); BILIRUBIN,TOTAL 0.4 mg/dL (0.2-1.0); TOTAL PROTEIN, SERUM 7.9 g/dL (6.0-8.3)
[2020-07-21 20:37] LABS: B-TYPE NATRIURETIC PEPTIDE 39 pg/mL (0-100)
== END 2020-07-21 23:15 | disposition home or self-care (01) ==
LOC: EDH 18:27
DX: E87.5 Hyperkalemia (principal); I11.0 Hypertensive heart disease with heart failure; I50.9 Heart failure, unspecified; J44.9 Chronic obstructive pulmonary disease, unspecified; I25.10 Atherosclerotic heart disease of native coronary artery without angina pectoris; Z90.49 Acquired absence of other specified parts of digestive tract; Z98.890 Other specified postprocedural states
CPT/HCPCS: 36415; 71045; 80053; 82550; 83880; 84484; 85025; 85610; 85730; 93005

== ENCOUNTER 2020-09-03 17:59 | Inpatient (IN) | payer MEDICARE ==
[2020-09-03 19:14] LABS: HEMATOCRIT 33.5 % (36-48); LYMPHOCYTES % (AUTO) 28.5 % (21.0-51.0); MEAN CORPUSCULAR HEMOGLOBIN 32.4 pg (27.0-33.0); MEAN CORPUSCULAR VOLUME 95.2 fL (79-99); MONOCYTES % (AUTO) 8.8 % (3.0-13.0); NEUTROPHILS % (AUTO) 56.5 % (40.0-77.0); PLATELET COUNT (AUTO) 89 K/uL (130-400); RED BLOOD CELL COUNT(AUTO) 3.52 MIL/uL (4.00-5.50); RED CELL DISTRIBUTION WIDTH 12.5 % (11.0-15.5)
[2020-09-03 19:17] LABS: INR 1.02 (0.85-1.15); PROTHROMBIN TIME 10.9 SEC (9.6-11.6)
[2020-09-03 19:19] LABS: PARTIAL THROMBOPLASTIN TIME 25.6 SEC (26.3-35.5)
[2020-09-03] MEDS ORDERED: ASPIRIN 325 MG TABLET ONE (19:32)
[2020-09-03 19:45] LABS: ALBUMIN 3.1 g/dL (3.5-5.0); BILIRUBIN,TOTAL 0.3 mg/dL (0.2-1.0); CREATININE 1.7 mg/dL (0.5-1.5); POTASSIUM 4.6 mmol/L (3.5-5.1); TOTAL PROTEIN, SERUM 6.7 g/dL (6.0-8.3)
[2020-09-03] MEDS ORDERED: NITROGLYCERIN 1GM OINT 1 INCH/1GM TD ONE (20:46)
[2020-09-04 08:24] LABS: BASOPHILS % (AUTO) 0.9 % (0.0-5.0); EOSINOPHILS % (AUTO) 6.9 % (0.0-8.0); HEMATOCRIT 32.7 % (36-48); LYMPHOCYTES % (AUTO) 32.4 % (21.0-51.0); MEAN CORPUSCULAR HEMOGLOBIN 32.6 pg (27.0-33.0); MEAN CORPUSCULAR HGB CONC 33.9 g/dL (32.0-36.0); MEAN CORPUSCULAR VOLUME 95.9 fL (79-99); NEUTROPHILS % (AUTO) 51.6 % (40.0-77.0); PLATELET COUNT (AUTO) 87 K/uL (130-400); RED BLOOD CELL COUNT(AUTO) 3.41 MIL/uL (4.00-5.50); RED CELL DISTRIBUTION WIDTH 12.7 % (11.0-15.5); WHITE BLOOD COUNT (AUTO) 5.6 K/uL (4.8-10.8)
[2020-09-04 08:37] LABS: ALBUMIN 2.9 g/dL (3.5-5.0); BILIRUBIN,TOTAL 0.5 mg/dL (0.2-1.0); CREATININE 1.4 mg/dL (0.5-1.5); POTASSIUM 4.2 mmol/L (3.5-5.1); TOTAL PROTEIN, SERUM 6.3 g/dL (6.0-8.3)
[2020-09-04] MEDS ORDERED: CARVEDILOL 6.25 MG TABLET PO SCH (09:00)
[2020-09-04] MEDS ORDERED: ENOXAPARIN SODIUM 30 MG/0.3 ML SQ SCH (09:00)
[2020-09-04] MEDS ORDERED: PANTOPRAZOLE 40 MG TAB DR PO SCH (09:43)
[2020-09-04] MEDS ORDERED: 1/2 NS 1000ML 1,000 ML IV SCH (09:45)
[2020-09-04] MEDS ORDERED: 1/2 NS 1000ML 1,000 ML IV ONE (11:07)
[2020-09-04] MEDS ORDERED: IPRATROPIUM 0.5 MG/2.5 ML INH IH ONE (13:16)
[2020-09-04] MEDS ORDERED: ENOXAPARIN SODIUM 30 MG/0.3 ML SQ ONE (15:09)
[2020-09-04] MEDS: IPRATROPIUM 0.5 MG/2.5 ML INH IH SCH (20:27)
[2020-09-04] MEDS ORDERED: ACETAMINOPHEN 500 MG TABLET ONE (22:38)
[2020-09-04] MEDS ORDERED: CARVEDILOL 6.25 MG TABLET PO ONE (22:38)
[2020-09-04 23:46] LABS: APPEARANCE,URINE Clear (CLEAR); BILIRUBIN,URINE Negative (NEGATIVE); COLOR,URINE Yellow (YELLOW); GLUCOSE, URINE (UA) TRACE mg/dL (NEGATIVE); KETONES,URINE Negative (NEGATIVE); LEUKOCYTE ESTERASE ,URINE Negative (NEGATIVE); NITRATE,URINE Negative (NEGATIVE); OCCULT BLOOD,URINE Negative (NEGATIVE); PH,URINE 5.5 (5.0-8.0); PROTEIN,URINE Negative (NEGATIVE)
[2020-09-05 00:33] LABS: BACTERIA,URINE Few /HPF (None Seen); RBC,URINE 0-1 /HPF (0-1); WBC,URINE 0-1 /HPF (0-1)
[2020-09-05] MEDS: IPRATROPIUM 0.5 MG/2.5 ML INH IH SCH ×4 (00:51→18:15)
[2020-09-05] MEDS ORDERED: ACETAMINOPHEN 500 MG TABLET PO PRN (02:00)
[2020-09-05] MEDS ORDERED: IPRATROPIUM 0.5 MG/2.5 ML INH IH ONE ×2 (06:31→11:16)
[2020-09-05] MEDS ORDERED: HYDROCODONE/ACETAMINOPHEN 5/325 MG TAB ONE ×2 (06:48→14:01)
[2020-09-05] MEDS ORDERED: HYDROCODONE/ACETAMINOPHEN 5/325 MG TAB PO PRN (07:30)
[2020-09-05] MEDS ORDERED: CARVEDILOL 6.25 MG TABLET PO ONE (08:58)
[2020-09-05] MEDS ORDERED: ENOXAPARIN SODIUM 30 MG/0.3 ML SQ ONE (08:58)
[2020-09-05] MEDS ORDERED: PANTOPRAZOLE 40 MG TAB DR ONE (08:58)
[2020-09-05 09:01] LABS: CREATININE 1.2 mg/dL (0.5-1.5); POTASSIUM 4.7 mmol/L (3.5-5.1); THYROID STIMULATING HORMONE 2.58 uIU/mL (0.36-3.74)
[2020-09-05] MEDS ORDERED: REGADENOSON 0.4 MG/5 ML PF SYG IVP SCH (15:30)
[2020-12-19] MEDS ORDERED: FURO40TA5 PO (00:01)
[2020-12-19] MEDS ORDERED: MV-M1TAB20 PO (00:01)
[2020-12-19] MEDS ORDERED: CEFD300C3 PO (00:01)
[2020-12-19] MEDS ORDERED: OMEP40CA21 PO (00:01)
[2020-12-19] MEDS ORDERED: MELA10TA7 PO (00:01)
[2020-12-19] MEDS ORDERED: POTA2TAB18 PO (00:01)
[2020-12-19] MEDS ORDERED: DOCU-116 PO (00:01)
[2020-12-19] MEDS ORDERED: GABA-529 PO (00:01)
[2020-12-19] MEDS ORDERED: FERR159T2 PO (00:01)
[2021-01-10] MEDS ORDERED: TRAZ-185 PO (11:37)
[2021-01-10] MEDS ORDERED: METO2.5T2 PO (11:37)
[2021-01-10] MEDS ORDERED: MELO-108 PO (11:37)
[2021-01-10] MEDS ORDERED: MULT-1367 PO (11:37)
[2021-01-10] MEDS ORDERED: CYAN30003 SL (11:37)
[2021-01-10] MEDS ORDERED: POTA-10 PO (11:37)
[2021-01-10] MEDS ORDERED: MIDO5TAB4 PO (11:37)
[2021-01-10] MEDS ORDERED: BUME1TAB7 PO (11:37)
[2021-01-10] MEDS ORDERED: FLUT1BLS8 IH (11:37)
[2021-01-10] MEDS ORDERED: NITR0.4T50 SL (11:37)
[2021-01-10] MEDS ORDERED: DONE5TAB5 PO (11:37)
[2021-01-10] MEDS ORDERED: PRED10TA3 PO (11:37)
[2021-01-10] MEDS ORDERED: ACET-3194 PO (11:37)
[2021-01-10] MEDS ORDERED: FERS325 PO (11:37)
[2021-01-10] MEDS ORDERED: ONDA4TAB4 PO (11:37)
[2021-01-10] MEDS ORDERED: GABA-529 PO (11:37)
[2021-01-10] MEDS ORDERED: DOCU100C33 PO (11:37)
[2021-01-10] MEDS ORDERED: GUAI100S59 PO (11:37)
[2021-01-10] MEDS ORDERED: MV-M1TAB20 PO (11:37)
[2021-01-10] MEDS ORDERED: MOM30 PO (11:37)
[2021-01-10] MEDS ORDERED: LACT10SO9 PO (11:37)
[2021-01-10] MEDS ORDERED: DEXT1DRO OP (11:37)
[2021-01-10] MEDS ORDERED: ATOR40TA69 PO (11:37)
[2021-01-10] MEDS ORDERED: LEVO500T90 PO (11:37)
[2021-01-10] MEDS ORDERED: SPIR25TA6 PO (11:37)
[2021-01-10] MEDS ORDERED: ALBU2.5V2 IH (11:37)
[2021-01-10] MEDS ORDERED: OMEP40CA21 PO (11:37)
[2021-01-10] MEDS ORDERED: CLOT15C TP (11:37)
== END 2020-09-05 20:36 | disposition home or self-care (01) | DRG 202 ==
LOC: EDH 17:59 → EDHIP 20:50
PROVIDERS: ADMIT Internal Medicine; ATTEND Internal Medicine
DX: J45.901 Unspecified asthma with (acute) exacerbation (principal); J44.1 Chronic obstructive pulmonary disease with (acute) exacerbation; I42.0 Dilated cardiomyopathy; I50.42 Chronic combined systolic (congestive) and diastolic (congestive) heart failure; D69.6 Thrombocytopenia, unspecified; E11.9 Type 2 diabetes mellitus without complications; F03.90 Unspecified dementia, unspecified severity, without behavioral disturbance, psychotic disturbance, mood disturbance, and anxiety; E78.5 Hyperlipidemia, unspecified; I25.10 Atherosclerotic heart disease of native coronary artery without angina pectoris; I11.0 Hypertensive heart disease with heart failure; K74.60 Unspecified cirrhosis of liver; M19.90 Unspecified osteoarthritis, unspecified site; Z79.1 Long term (current) use of non-steroidal anti-inflammatories (NSAID); Z79.899 Other long term (current) drug therapy; Z86.73 Personal history of transient ischemic attack (TIA), and cerebral infarction without residual deficits; Z87.11 Personal history of peptic ulcer disease; Z91.19 Patient's noncompliance with other medical treatment and regimen; Z90.49 Acquired absence of other specified parts of digestive tract; Z79.84 Long term (current) use of oral hypoglycemic drugs; R07.9 Chest pain, unspecified
CPT/HCPCS: 36415; 71045; 78452; 80048; 80053; 81001; 82140; 82550; 83880; 84439; 84443; 84484; 85025; 85610; 85730; 93005; 93017; 93306; 93356; 94640; 94664; 96374; A9500; G0378; J1650; J2785

== ENCOUNTER 2020-12-30 09:30 | Emergency (ER) | payer OTHER, MEDICARE ==
[~2020-12-30 09:30] MED LIST changes: -BUDE0.5A8 IH; -BUME2TAB5 PO; +CEFD300C3 PO; -CHLO15MO3 MM; +DOCU-116 PO; -DULO20CA18 PO; -FAMO20TA8 PO; -FERR-82 PO; +FERR159T2 PO; +FURO40TA5 PO; +GABA-529 PO; -GUAI-1447 PO; -INSLAN SQ; -INSREG SQ; -LOSA25TA41 PO; +MELA10TA7 PO; -MEMA5TAB PO; -METF500S7 PO; -METO25TA6 PO; +MV-M1TAB20 PO; +OMEP40CA13 PO; +POTA2TAB18 PO; -SIMV5TAB58 PO; -VIT500LI PO; -[UNRECOGNIZED DRUG - OTHER] IH
[2020-12-30 11:11] LABS: BASOPHILS % (AUTO) 0.9 % (0.0-5.0); EOSINOPHILS % (AUTO) 3.8 % (0.0-8.0); HEMATOCRIT 34.2 % (36-48); LYMPHOCYTES % (AUTO) 17.1 % (21.0-51.0); MEAN CORPUSCULAR HEMOGLOBIN 33.3 pg (27.0-33.0); MEAN CORPUSCULAR HGB CONC 31.9 g/dL (32.0-36.0); MEAN CORPUSCULAR VOLUME 104.6 fL (79-99); MONOCYTES % (AUTO) 7.1 % (3.0-13.0); NEUTROPHILS % (AUTO) 70.9 % (40.0-77.0); PLATELET COUNT (AUTO) 68 K/uL (130-400); RED BLOOD CELL COUNT(AUTO) 3.27 MIL/uL (4.00-5.50); RED CELL DISTRIBUTION WIDTH 13.2 % (11.0-15.5); WHITE BLOOD COUNT (AUTO) 5.5 K/uL (4.8-10.8)
[2020-12-30 11:24] LABS: ALBUMIN 3.2 g/dL (3.5-5.0); BILIRUBIN,TOTAL 0.5 mg/dL (0.2-1.0); CREATININE 1.3 mg/dL (0.5-1.5); POTASSIUM 5.2 mmol/L (3.5-5.1); TOTAL PROTEIN, SERUM 6.6 g/dL (6.0-8.3)
[2020-12-30] MEDS ORDERED: SODIUM CHLORIDE 0.9% 500ML 500 ML IV ONE (14:55)
== END 2020-12-30 18:33 | disposition home or self-care (01) ==
LOC: EDH 09:30
DX: E86.0 Dehydration (principal); I95.9 Hypotension, unspecified; R41.82 Altered mental status, unspecified; T50.2X5A Adverse effect of carbonic-anhydrase inhibitors, benzothiadiazides and other diuretics, initial encounter; J44.9 Chronic obstructive pulmonary disease, unspecified; I25.10 Atherosclerotic heart disease of native coronary artery without angina pectoris; Z98.890 Other specified postprocedural states
CPT/HCPCS: 36415; 70450; 71045; 80053; 84443; 84484; 85025; 93005; 99285; J7040